=== PATIENT | female | born 1955 | race Caucasian/White ===

== ENCOUNTER 2017-12-13 16:43 | Inpatient (IN) | payer MEDICARE ==
[2017-12-13 17:49] LABS: PTT 23.4 SEC (22.9-36.1); Prothrombin Time 13.3 SEC (12.0-14.7)
[2017-12-13 17:59] LABS: #Lymphocytes 1.4 thou/uL (1.20-3.40); #Monocytes 0.4 thou/uL (0.11-0.59); #Neutrophils 5.1 thou/uL (1.40-6.50); %Basophils 0.4 % (0.0-1.0); %Eosinophils 0.2 % (0.0-10.0); %Lymphocytes 20.6 % (21.0-51.0); %Monocytes 6.2 % (0.0-10.0); %Neutrophils 72.6 % (42.0-75.0); ALT (SGPT) 220 U/L (8-55); AST (SGOT) 340 U/L (5-34); Albumin 3.7 g/dL (3.4-4.8); Alkaline Phosphatase 132 U/L (40-150); Anion Gap 13 mmol/L (10-20); BUN (Urea Nitrogen) 13 mg/dL (9.8-20.1); Bilirubin, Total 0.9 mg/dL (0.2-1.2); Calc. Creatinine Clearance 0 mL/min (70-130); Calcium 8.6 mg/dL (7.8-10.44); Carbon Dioxide 27 mmol/L (23-31); Chloride 106 mmol/L (98-107); Estimated GFR-MDRD 73; Globulin 2.7 g/dL (2.4-3.5); Glucose 83 mg/dL (80-115); Hemoglobin 7.1 g/dL (12.0-16.0); Iron 15 ug/dL (50-170); Iron Binding Capacity, Total 386 mcg/dL (265-497); Mean Corpuscular Hemoglobin 19.1 pg (27.0-31.0); Mean Corpuscular Volume 66.1 fl (81.0-99.0); Platelet Count 335 thou/uL (130-400); Potassium 4.1 mmol/L (3.5-5.1); Protein, Total 6.4 g/dL (6.0-8.3); RBC Distribution Width 20.7 % (11.5-14.5); Red Blood Cell (RBC) Count 3.73 mill/uL (4.20-5.40); Sodium 142 mmol/L (136-145)
[2017-12-13 18:14] LABS: Anisocytosis MODERATE=16-30 cells (100X) (0-5/hpf); Elliptocytes SLIGHT = 2-5 cells (100X) (0-1/hpf); Hypochromia SLIGHT = 6-15 cells (100X) (0-5/hpf); MDiff Complete? YES; Microcytosis MODERATE=15-30 cells (100X) (0-5/hpf); Ovalocytes SLIGHT = 2-5 cells (100X) (0-1/hpf); PLT Morphology Comment Appears Adequate; Poikilocytosis SLIGHT = 6-15 cells (100X) (0-5/hpf); Polychromasia MODERATE = 3-4 cells (100X) (0-2/hpf); Schistocytes SLIGHT = 2-5 cells (100X) (0-1/hpf); Tear Drops SLIGHT = 2-5 cells (100X) (0-1/hpf)
--- NOTE | 2017-12-13 18:59 | PDOC.FPRHP ---
- History of Present Illness Chief Complaint: fatigued History of Present Illness: 62 yo F with multiple ED visits for Anemia, comes in with fatigue which has been getting progressively worse over a period of months. She states nothing changed today she just got fed up with feeing tired and decided to come in. She has been having dark stools for months-years, she is not sure. Was seen at [facility] on 11/09 and worked up for anemia by Dr. Lira, at that time she was referred to GI for colonscopy but she did not follow through as she was anxious about getting the procedure done. She also quit taking iron pills that were prescribed at that time as she says they make her feel bloated. She had a blood transfusion in July. She has no problems eating. She states she has some sharp epigasric pain which started after arriving at the ED tonight. She has had it before, it comes on randomly, nothing makes it better or worse, lasts about 30 minutes then goes away. ED Course: Protonix Drip Ct at outside hospital, no acute process, see impression - Allergies/Adverse Reactions Allergies Allergy/AdvReac Type Severity Reaction Status Date / Time aspirin Allergy Verified 12/13/17 20:36 bacitracin Allergy Verified 12/13/17 20:36 [From Neosporin ([id number])] diphenhydramine Allergy Verified 12/13/17 20:36 [From Benadryl] neomycin Allergy Verified 12/13/17 20:36 [From Neosporin ([id number])] pentazocine [From Talwin] Allergy Verified 12/13/17 20:36 polymyxin B Allergy Verified 12/13/17 20:36 [From Neosporin ([id number])] - Home Medications Medication Instructions Recorded Confirmed Type ALPRAZolam [Alprazolam] 1 tab PO QID 12/13/17 12/13/17 History Acetaminophen With Codeine 1 tab PO Q6HR PRN 12/13/17 12/13/17 History [Acetaminophen/Codeine #4] Albuterol Sulfate [Albuterol 1.25 mg NEB Q8HR PRN 12/13/17 12/13/17 History Sulfate Neb] Albuterol Sulfate [Ventolin Hfa] 2 puff INH QID PRN 12/13/17 12/13/17 History Fluticasone/Vilanterol [Breo 1 each IH DAILY PRN 12/13/17 12/13/17 History Ellipta 200-25 Mcg INH] Omeprazole [Omeprazole] 1 tab PO DAILY 12/13/17 12/13/17 History Roflumilast [Daliresp] 1 tab PO DAILY 12/13/17 12/13/17 History Venlafaxine HCl [Venlafaxine HCl 1 tab PO BID 12/13/17 12/13/17 History ER] predniSONE [predniSONE] 1 tab PO DAILY 12/13/17 12/13/17 History - History PMHx: HLD, GI Bleed, Asthma, Stage 2 basal cell carcinoma removed from neck, PSHx: cholecystectomy, appendectomy, knee, ablation for SVT per patient, rotator cuff x2 FHx: mother CHF Social: no smoking, alcohol, or drugs - Review of Systems General: reports: fever/chills (chills, no fever), fatigue ENT: denies: nasal congestion Respiratory: reports: shortness of breath, exercise intolerance. denies: cough Cardiovascular: denies: chest pain, palpitation, edema Gastrointestinal: reports: nausea, vomiting, diarrhea, abdominal pain, GI bleeding. denies: constipation Genitourinary: denies: incontinence, polyuria Skin: denies: rashes, itching Musculoskeletal: reports: arthritis/arthralgias Neurological: denies: numbness, weakness Psychological: reports: anxiety - Vital signs BP: 155/67 HR: 106 RR: 14 Tmax: 97.8 Pox: 95% on RA Wt: 54kg - Physical Exam Constitutional: awake, alert and oriented, other (Patient is quite anxious, does not appear to be distressed) HEENT: normocephalic and atraumatic, PERRLA Neck: supple Heart: RRR, normal S1/S2, no edema Lungs: CTAB, no respiratory distress, good air movement Abdomen: soft, bowel sounds present, other (patient states she is tender to palpation diffusely, no guarding or rigidity) Musculoskeletal: normal structure, ROM grossly normal Neurological: no focal deficit Skin: no rash/lesions, capillary refill <2 seconds Heme/Lymphatic: other (easy bruising) FMR H&P: Results - Labs Result Diagrams: 12/13/17 17:30 12/13/17 17:30 Lab results: WBC 7.0 thou/uL (4.8-10.8) 12/13/17 17:30 Hgb 7.1 g/dL (12.0-16.0) L 12/13/17 17:30 Hct 24.6 % (36.0-47.0) L 12/13/17 17:30 MCV 66.1 fl (81.0-99.0) L 12/13/17 17:30 Plt Count 335 thou/uL (130-400) 12/13/17 17:30 Neutrophils % 72.6 % (42.0-75.0) 12/13/17 17:30 Sodium 142 mmol/L (136-145) 12/13/17 17:30 Potassium 4.1 mmol/L (3.5-5.1) 12/13/17 17:30 Chloride 106 mmol/L (98-107) 12/13/17 17:30 Carbon Dioxide 27 mmol/L (23-31) 12/13/17 17:30 BUN 13 mg/dL (9.8-20.1) 12/13/17 17:30 Creatinine 0.80 mg/dL (0.6-1.1) 12/13/17 17:30 Glucose 83 mg/dL (80-115) 12/13/17 17:30 Calcium 8.6 mg/dL (7.8-10.44) 12/13/17 17:30 Total Bilirubin 0.9 mg/dL (0.2-1.2) 12/13/17 17:30 AST 340 U/L (5-34) H 12/13/17 17:30 ALT 220 U/L (8-55) H 12/13/17 17:30 Alkaline Phosphatase 132 U/L (40-150) 12/13/17 17:30 Serum Total Protein 6.4 g/dL (6.0-8.3) 12/13/17 17:30 Albumin 3.7 g/dL (3.4-4.8) 12/13/17 17:30 FMR H&P: A/P - Problem List (1) Anemia Current Visit: Yes Status: Acute Code(s): D64.9 - ANEMIA, UNSPECIFIED (2) GI bleed Current Visit: Yes Status: Acute Code(s): K92.2 - GASTROINTESTINAL HEMORRHAGE, UNSPECIFIED (3) HLD (hyperlipidemia) Current Visit: Yes Status: Acute Code(s): E78.5 - HYPERLIPIDEMIA, UNSPECIFIED (4) Asthma Current Visit: Yes Status: Acute Code(s): J45.909 - UNSPECIFIED ASTHMA, UNCOMPLICATED (5) Transaminitis Current Visit: Yes Status: Acute Code(s): R74.0 - NONSPEC ELEV OF LEVELS OF TRANSAMNS & LACTIC ACID DEHYDRGNSE (6) Pneumonitis Current Visit: Yes Status: Acute Code(s): J18.9 - PNEUMONIA, UNSPECIFIED ORGANISM - Plan # Anemia 2/2 Chronic GI Bleed - dark stools for months - referred for colonoscopy 11/09, did not follow through - not taking iron as prescribed - protonix drip - hgb 7.1, 7.3 when evaluated in clinic on 11/09 - 11/09 labs: B12/folate WNL, TSH WNL, ferritin low, retic count 2.1 - today iron low, TIBC normal -> iron deficiency anemia - consult GI in AM for EGD/Colonoscopy # Transaminitis - RUQ US - Hepatitis panel - history of multiple transfusion, no history of drug use # Asthma - takes prednisone 10mg daily - gets "asthma shot" monthly with pulm, does not know what this called, apparently not getting it anymore - home meds - takes phenteramine to prevent appetite suppression - really likes dr. lira, suggest having him discuss cutting back on steroids - CT shows Rt lobe infectious pneumonitis, suggests f/u, CTAB, monitor # HLD - FLP - no statin on home meds # Anxiety - alprazolam 1mg TID at home - gave her tramadol as she was threatening to take tyl 3 from home, avoiding this 2/2 transaminitis - reports mild chest pain in the ED, EKG unremarkable, check trop/BNP as she says she get swelling at time Diet: clear liquids, NPO at midnight Code: full Fluids: NS 100ml/hr Dispo: >48 hours FMR H&P: Upper Level - Pertinent history 62 yo F with PMH significant for iron-def anemia, asthma presents with worsening fatigue. Was seen at [place] ED yesterday for similar symptoms, returned to ER and was then transferred to [facility] ER for acute GI bleed. H/H stable since yesterday, but patient has been passing dark, tarry bowel movements for the past week or so. FOBT positive at OSH. Pt describes worsening Roche, SOB with any activity, and dizziness, but denies any CP. Was referred to see GI specialist by PCP earlier this year, but did not go. Anemia also worked up at that time and found to be microcytic and iron-def. - Pertinent findings PE: T: 98.0 P: 93 BP: 160/63 RR: 18 99% on RA Gen: [place] female in NAD HEENT: PERRL, EOMI, MMM, pale sclera, no lymphadenopathy or thyromegaly CV: RRR no murmurs, distal pulses intact Pulm: CTAB, no wheezes or rhonchi Abd: soft, NT/ND, BS present, no masses Ext: no cyanosis or edema MSK: ORTIZ well, no joint or muscle pain or swelling Neuro: CN 2-12 intact, normal sensation Skin: no rashes or lesions Psych: A&O x3, appropriate in conversation, slightly anxious - Plan Date/Time: 12/13/17 1859 62 yo F here with hematochezia. 1) Acute GI bleed: Admit to medical. Type and crossed in ER, VS stable currently. Consult GI. NS @ 125. Continue PPI, avoid all NSAIDs. NPO at midnight. 2) Iron def. anemia: MCV 66, was previously started on iron by PCP, but stopped taking this. 3) Anxiety: Continue home medications. 4) asthma: Neb prn 5) transaminitis: RUQ US, hepatitis serologies I, [Wes Arizmendi], have evaluated this patient and agree with findings/plan as outlined by chemical engineering intern resident. Pertinent changes/additions are listed here.
[2017-12-13 19:38] LABS: CKMB 1.5 ng/mL (0-6.6); Troponin I Less than 0.010 ng/mL (< 0.028)
[2017-12-13 20:42] VITALS: BMI 22.6
[2017-12-13] MEDS ORDERED: Albuterol Sulfate 1.25 MG/3 ML NEB NEB PRN (20:52)
[2017-12-13] MEDS ORDERED: Non-Formulary Item 1 EACH (Fluticasone/Vilanterol [Breo Ellipta 200-25 Mcg Inh] 1 EACH) IH PRN (20:52)
[2017-12-13] MEDS ORDERED: PROVENTIL INHALER 6.7 G (200 INHALATIONS) INH PRN (20:52)
[2017-12-13] MEDS ORDERED: Mometasone/Formoterol 120 PUFF INHALER INH PRN (21:08)
--- NOTE | 2017-12-13 21:35 | ULT ---
GALLBLADDER ULTRASOUND: 12/13/17 INDICATIONS: Transaminitis. Nausea and vomiting. Epigastric pain. Patient is post cholecystectomy. Liver appears unremarkable. Common bile duct is normal caliber at 5 mm. the pancreas is obscured. The right kidney is identified. There is no evidence of hydronephrosis. Small 1 cm cyst mid right renal cortex. Small echogenic focus inferior pole measuring 5 to 7 mm may represent a small calculus. IMPRESSION: 1. Post cholecystectomy. 2. Small right renal cyst. 3. Liver appears unremarkable by ultrasound. POS: [facility]
[2017-12-13] MEDS: traMADol HCl 50 MG TAB PO PRN (21:56)
[2017-12-13] MEDS: Dicyclomine 10 MG CAP PO SCH (21:57)
[2017-12-13] MEDS: Venlafaxine HCl XR 75 MG CAP PO SCH (21:57)
[2017-12-13] MEDS: Pantoprazole 80 MG in Sodium Chloride 0.9% 100 ML IVP SCH (21:58)
[2017-12-13] MEDS: Sodium Chloride 0.9% 1,000 ML IV SCH (21:59)
[2017-12-13] MEDS: Ondansetron ODT 4 MG TAB PO PRN (23:44)
[2017-12-14 00:21] LABS: HBCM Index 0.07 S/CO (0-0.79); Hep A IgM AB Non-Reactive (NonReactive); Hep A IgM S/CO 0.07 S/CO (0-0.79); Hep B Surf Ag Non-Reactive S/CO (NonReactive); Hep C IgG Ab Non-Reactive (NonReactive); Hep C Index 0.05 S/CO (0-0.79); Hepatitis B Core IGM Abs Non-Reactive (NonReactive)
[2017-12-14 05:18] LABS: #Lymphocytes 2.4 thou/uL (1.20-3.40); #Monocytes 0.5 thou/uL (0.11-0.59); #Neutrophils 4.6 thou/uL (1.40-6.50); %Basophils 0.1 % (0.0-1.0); %Eosinophils 0.2 % (0.0-10.0); %Lymphocytes 31.4 % (21.0-51.0); %Neutrophils 61.4 % (42.0-75.0); Hemoglobin 6.4 g/dL (12.0-16.0); Mean Corpuscular HGB CONC 28.8 g/dL (32.0-36.0); Mean Corpuscular Hemoglobin 19.1 pg (27.0-31.0); Mean Corpuscular Volume 66.5 fl (81.0-99.0); Mean Platelet Volume 10.7 fL (7.4-10.4); Platelet Count 310 thou/uL (130-400); RBC Distribution Width 20.7 % (11.5-14.5); Red Blood Cell (RBC) Count 3.33 mill/uL (4.20-5.40); White Blood Cell (WBC) Count 7.5 thou/uL (4.8-10.8)
[2017-12-14 05:27] LABS: ALT (SGPT) 149 U/L (8-55); AST (SGOT) 144 U/L (5-34); Albumin 3.2 g/dL (3.4-4.8); Alkaline Phosphatase 113 U/L (40-150); Anion Gap 9 mmol/L (10-20); BUN (Urea Nitrogen) 8 mg/dL (9.8-20.1); Calc. Creatinine Clearance 67 mL/min (70-130); Calcium 8.1 mg/dL (7.8-10.44); Carbon Dioxide 30 mmol/L (23-31); Chloride 107 mmol/L (98-107); Estimated GFR-MDRD 77; Globulin 2.3 g/dL (2.4-3.5); Glucose 91 mg/dL (80-115); Potassium 3.2 mmol/L (3.5-5.1); Protein, Total 5.5 g/dL (6.0-8.3); Sodium 143 mmol/L (136-145)
[2017-12-14] MEDS: Sodium Chloride 0.9% 1,000 ML IV SCH ×2 (06:21→16:16)
[2017-12-14] MEDS: traMADol HCl 50 MG TAB PO PRN ×2 (06:29→21:26)
--- NOTE | 2017-12-14 06:42 | PDOC.FM ---
- Subjective Subjective: Complaining of left knee pain and chronic fatigue. She had one episode of vomiting last night that she said was mucous like, nonbloody, not coffee ground ; denied episodes of melena since yesterday. Denies hx of nsaid use, actually says she is allergic. She endorses chronic gerd hx and worsening sx at night. She denies longstanding hx of anemia. - Objective MAR Reviewed: Yes Vital Signs & Weight: Vital Signs (12 hours) Temp Pulse Resp BP Pulse Ox 12/14/17 05:52 98.6 F 101 H 21 H 146/60 H 91 L 12/14/17 00:00 98.2 F 94 22 H 142/82 H 97 12/13/17 21:24 99 12/13/17 19:50 98.3 F 96 20 98 12/13/17 19:40 98.3 F 96 20 177/76 H 98 Weight Weight 54.488 kg I&O: 12/12/17 12/13/17 12/14/17 06:59 06:59 06:59 Intake Total 1280 Balance 1280 Result Diagrams: 12/14/17 04:46 12/14/17 04:46 Phys Exam - Physical Examination Constitutional: NAD HEENT: PERRLA, moist MMs Neck: no JVD Respiratory: no wheezing, no rales, clear to auscultation bilateral Cardiovascular: no significant murmur tachycardic Gastrointestinal: soft, non-tender Musculoskeletal: no edema, pulses present Neurological: non-focal, normal sensation Psychiatric: normal affect, A&O x 3 Skin: no rash Dx/Plan (1) Upper GI bleed Code(s): K92.2 - GASTROINTESTINAL HEMORRHAGE, UNSPECIFIED Status: Acute (2) Symptomatic anemia Code(s): D64.9 - ANEMIA, UNSPECIFIED Status: Acute (3) History of melena Code(s): Z87.19 - PERSONAL HISTORY OF OTHER DISEASES OF THE DIGESTIVE SYSTEM Status: Acute (4) Asthma Code(s): J45.909 - UNSPECIFIED ASTHMA, UNCOMPLICATED Status: Acute (5) HLD (hyperlipidemia) Code(s): E78.5 - HYPERLIPIDEMIA, UNSPECIFIED Status: Acute (6) Transaminitis Code(s): R74.0 - NONSPEC ELEV OF LEVELS OF TRANSAMNS & LACTIC ACID DEHYDRGNSE Status: Acute (7) Right knee pain Code(s): M25.561 - PAIN IN RIGHT KNEE Status: Acute - Plan Plan: 62 yo female with melena admitted for sx anemia and transaminitis. # Symptomatic Anemia 2/2 Chronic GI Bleed - hgb 6.4 this am, last night was 7.1, and 7.3 when evaluated in clinic on 11/09 - 11/09 labs: B12/folate WNL - 11/09 labs showed iron deficient anemia - consult GI in AM for EGD/Colonoscopy - will transfuse one unit of packed red blood cells this am - will continue to volume resuscitate #Upper GI bleed- -Hb decreased to 6.4, ordered unit of blood -consulted GI, appreciate recs # Transaminitis - RUQ US wnl aside from evidence of a cholecystectomy and a right renal cyst - Hepatitis panel pending - history of multiple transfusions, no history of drug use -will order HIV, RPR #GERD -uncontrolled -will order h. pylori testing as sx occur at night -continue protonix # Asthma - takes prednisone 10mg daily - home meds - takes phenteramine to prevent appetite suppression - CT shows Rt lobe pneumonitis # HLD - FLP - no statin on home meds # Anxiety - alprazolam 1mg TID at home #Chestpain - reports mild chest pain in the ED, EKG unremarkable, check trop/BNP as she says she get swelling at time - likely anxiety Diet: clear liquids, NPO at midnight Code: full Fluids: NS 100ml/hr Dispo: >48 hours
[2017-12-14] MEDS ORDERED: Potassium Chloride 10 MEQ in Premix Bag 1 BAG IVPB SCH (07:00)
[2017-12-14] MEDS ORDERED: ROFLUMILAST PO SCH (09:00)
[2017-12-14] MEDS: ALPRAZolam 1 MG TAB PO PRN ×2 (10:42→21:25)
[2017-12-14] MEDS: predniSONE 5 MG TAB PO SCH (10:42)
[2017-12-14] MEDS: Dicyclomine 10 MG CAP PO SCH ×4 (10:42→21:18)
[2017-12-14] MEDS: Venlafaxine HCl XR 75 MG CAP PO SCH ×2 (10:42→21:18)
[2017-12-14] MEDS: Pantoprazole 80 MG in Sodium Chloride 0.9% 100 ML IVP SCH ×2 (10:56→22:18)
--- NOTE | 2017-12-14 11:57 | HP ---
HISTORY OF PRESENT ILLNESS: I have examined the patient. I have also discussed the case with Dr. Jaguar Miranda and agreed with his assessment and plan. Ms. Henley is a pleasant 62-year-old white female patient who was admitted with profound anemia likely of many months duration. She has a history of melena consistent with upper gastrointestinal bleed. This has been a problem for her ongoing for at least the last several months. We had initiated an outpatient workup through our clinic to include c olonoscopy which she initially refused. In the event, she presented to our emergency room with profo und fatigue, anemia and a hemoglobin level of 7.1 that later dropped to 6.4. She has been admitted f or transfusion and GI evaluation. PHYSICAL EXAMINATION: VITAL SIGNS: Her blood pressure is currently 140/70, her heart rate is 99, respirations 14. She is afebrile and her room air pulse oximetry is 95%. GENERAL: This is a pale, chronically ill-appearing female with brewer facies. No erythema or exudate. NECK: Supple. CARDIAC: Heart rhythm regular without gallop or murmur noted. LUNGS: Have occasional wheezes. She is in no distress. No use of accessory muscles. ABDOMEN: Epigastric tenderness without guarding, rebound or rigidity. NEUROLOGIC: No focal deficits. LABORATORY DATA: CBC on admission; white count 7,000, hemoglobin 7.1, hematocrit 24.6 with an MCV of 66. After some fluids, her hemoglobin dropped to 6.4, hematocrit of 22. MCV of 66. Chemistries: Sodium 142, potassium 4.1, chloride 106, bicarbonate 27, BUN 13, creatinine 0.8. Her s liseth iron is low at 15. Her TIBC is upper normal at 386. Her ferritin is low normal at 24.27. Her AST is elevated to 340 and her ALT is elevated to 220. ASSESSMENT: 1. Iron deficiency anemia. 2. Probable upper gastrointestinal bleed. 3. Elevated transaminases. 4. History of asthma. PLAN: We will admit, transfuse, consult GI for EGD and colonoscopy. We will also consider a tTG to check for celiac disease.
[2017-12-14 12:26] LABS: Hemoglobin 8.3 g/dL (12.0-16.0); Mean Corpuscular HGB CONC 29.5 g/dL (32.0-36.0); Mean Corpuscular Hemoglobin 20.7 pg (27.0-31.0); Mean Platelet Volume 5.3 fL (7.4-10.4); Platelet Count 315 thou/uL (130-400); RBC Distribution Width 22.7 % (11.5-14.5); Red Blood Cell (RBC) Count 4.03 mill/uL (4.20-5.40); White Blood Cell (WBC) Count 8.4 thou/uL (4.8-10.8)
[2017-12-14 13:10] LABS: HBSAB Concentration 0.37 mIU/mL; Hep B Surf AB Non-Reactive (NonReactive)
[2017-12-14] MEDS ORDERED: PROPOFOL 200 MG/20 ML VIAL ONE (13:48)
[2017-12-14] MEDS ORDERED: Lidocaine 1% PF 5 ML VIAL ONE (13:48)
[2017-12-14 16:59] LABS: Hemoglobin 8.2 g/dL (12.0-16.0); Mean Corpuscular HGB CONC 29.6 g/dL (32.0-36.0); Mean Corpuscular Hemoglobin 20.7 pg (27.0-31.0); Mean Corpuscular Volume 69.9 fl (81.0-99.0); Mean Platelet Volume 10.9 fL (7.4-10.4); Platelet Count 311 thou/uL (130-400); RBC Distribution Width 22.3 % (11.5-14.5); Red Blood Cell (RBC) Count 3.97 mill/uL (4.20-5.40); White Blood Cell (WBC) Count 9.1 thou/uL (4.8-10.8)
[2017-12-14] MEDS ORDERED: GoLYTELY 4,000 ml Bottle PO SCH (18:00)
--- NOTE | 2017-12-14 18:21 | ULT ---
LEFT LOWER EXTREMITY VENOUS DUPLEX EXAM: 12/14/17 Deep veins of the left lower extremity evaluated with color doppler, spectral analysis and compressio n. INDICATIONS: Left lower extremity pain and edema. Deep veins of the left lower extremity show normal compression, augmentation and blood flow. No evide nce of DVT. IMPRESSION: No evidence of left lower extremity DVT. POS: [facility]
[2017-12-14] MEDS: Ondansetron ODT 4 MG TAB PO PRN (21:25)
[2017-12-15] MEDS: Sodium Chloride 0.9% 1,000 ML IV SCH ×3 (04:47→22:57)
[2017-12-15] MEDS: traMADol HCl 50 MG TAB PO PRN (04:52)
--- NOTE | 2017-12-15 06:56 | PDOC.FM ---
- Subjective Subjective: No acute events overnight. Still endorses fatigue this am. Awaiting colonoscopy today. - Objective MAR Reviewed: Yes Vital Signs & Weight: Vital Signs (12 hours) Temp Pulse Resp BP Pulse Ox 12/14/17 21:16 99.3 F 84 18 165/68 H 99 12/14/17 20:00 99.3 F 84 18 99 Weight Weight 54.488 kg I&O: 12/13/17 12/14/17 12/15/17 06:59 06:59 06:59 Intake Total 1280 350 Balance 1280 350 Result Diagrams: 12/14/17 16:46 12/14/17 04:46 Phys Exam - Physical Examination Constitutional: NAD HEENT: PERRLA, moist MMs Respiratory: no wheezing, no rales, clear to auscultation bilateral Cardiovascular: RRR, no significant murmur Gastrointestinal: soft, non-tender, no distention Musculoskeletal: no edema, pulses present Neurological: non-focal, normal sensation Psychiatric: normal affect, A&O x 3 Skin: no rash Dx/Plan (1) Upper GI bleed Code(s): K92.2 - GASTROINTESTINAL HEMORRHAGE, UNSPECIFIED Status: Acute (2) Symptomatic anemia Code(s): D64.9 - ANEMIA, UNSPECIFIED Status: Acute (3) History of melena Code(s): Z87.19 - PERSONAL HISTORY OF OTHER DISEASES OF THE DIGESTIVE SYSTEM Status: Acute (4) Asthma Code(s): J45.909 - UNSPECIFIED ASTHMA, UNCOMPLICATED Status: Acute (5) HLD (hyperlipidemia) Code(s): E78.5 - HYPERLIPIDEMIA, UNSPECIFIED Status: Acute (6) Transaminitis Code(s): R74.0 - NONSPEC ELEV OF LEVELS OF TRANSAMNS & LACTIC ACID DEHYDRGNSE Status: Acute (7) Right knee pain Code(s): M25.561 - PAIN IN RIGHT KNEE Status: Acute - Plan Plan: 2 yo female with melena admitted for sx anemia and transaminitis. # Symptomatic Anemia 2/2 Chronic GI Bleed - hgb 8.2 after one unit of prbcs - 11/09 labs: B12/folate WNL - 11/09 labs showed iron deficient anemia - EGD completed yesterday, biopies of gastric mucosa and gastroesophageal junction; no overt signs of bleeding/ulcers; overall normal appearing mucosa - colonoscopy planned for this am - consider iron transfusion #Upper GI bleed- -H/H stable after one unit of blood transfused (8.2/ -consulted GI, appreciate recs # Transaminitis - RUQ US wnl aside from evidence of a cholecystectomy and a right renal cyst - Hepatitis panel wnl but pt not immune to hepatitis B - history of multiple transfusions, no history of drug use - will order HIV, RPR, EVA, and AMA #GERD -uncontrolled -H.pylori stool antigen pending and egd biopsies pending -continue protonix # Asthma - takes prednisone 10mg daily - home meds - takes phenteramine to prevent appetite suppression - CT shows Rt lobe pneumonitis # HLD - FLP - no statin on home meds # Anxiety - alprazolam 1mg TID at home #Chestpain - reports mild chest pain in the ED, EKG unremarkable, check trop/BNP as she says she get swelling at time - likely anxiety #right knee pain -posterior, hamstring area -venous doppler negative for clot -hx of arthroscopic meniscal surgery -recommend outpatient PT and RICE -not erythematous or warm, no rash or swelling Diet: clear liquids, NPO at midnight Code: full Fluids: NS 100ml/hr Dispo: >48 hours
--- NOTE | 2017-12-15 07:50 | OP ---
DATE OF SURGERY: 12/14/2017 OPERATIVE PROCEDURE: Esophagogastroduodenoscopy with biopsy. PREOPERATIVE DIAGNOSES: 1. Abdominal pain, nausea, history of dark stools. 2. Anemia. POSTOPERATIVE DIAGNOSES: 1. No esophagitis seen as the esophageal mucosa appeared normal. 2. Irregular Z-line. 3. Small hiatus hernia. 4. Gastric polyp over the gastric antrum with mild mucosal hyperemia. 5. Normal duodenum. PROCEDURE IN DETAIL: The patient was placed on the left lateral position and was given sedation by [facility] Anesthesia Department. A Pentax video gastroscope under direct vision was passed down the orophar ynx, past the GE junction, into the stomach and subsequently into the descending duodenum. The esoph ageal mucosa appeared normal. At the GE junction, the Z-line was irregular. She has small hiatus he rnia. The fundus, cardia and gastric body, no pathology seen. The gastric antrum shows mild mucosal hyperemia and also small gastric polyp. The duodenal bulb and descending duodenum, no pathology see n. Biopsies obtained from the GE junction and also from the gastric antrum and gastric body. The st omach was decompressed and the scope removed. RECOMMENDATIONS: Colonoscopy tomorrow.
[2017-12-15] MEDS: Dicyclomine 10 MG CAP PO SCH ×4 (08:03→20:03)
[2017-12-15] MEDS: predniSONE 5 MG TAB PO SCH ×2 (08:04→12:51)
[2017-12-15] MEDS: Venlafaxine HCl XR 75 MG CAP PO SCH ×2 (08:04→20:03)
--- NOTE | 2017-12-15 08:07 | CON ---
DATE OF CONSULTATION: 12/14/2017 REFERRING PHYSICIAN: Dr. Hattie De Leon-Dr. Eleazar Soliman, [facility]. REASON FOR CONSULTATION: Ms. Lindsay Henley is a very pleasant 62-year-old female hospital ized with severe pain over the left knee and left leg. The patient was found to have anemia on admis wisam. The patient gives history of some dark stools off and on over the last several months as per t he patient. The patient also has had isolated episodes of some nausea and vomiting with one time vom iting some coffee-ground material. This was happened sometime on 07/2017. Since that time, she has had no more coffee-ground vomiting. Her stool remained dark off and on. On admission, she was found to have anemia. She had a hemoglobin of 7.1 and dropping to 6.4. The patient has had no stool toda y. The patient has abdominal pain off and on. The pain over the epigastric area. She also has hist ory of chronic acid reflux, indigestion, and some heartburn. No history of dysphagia or odynophagia. The patient has had a colonoscopy maybe over 10-15 years ago and no followup colonoscopy afterwards . She has no family history of colon cancer. Her bowel movements are fairly regular. No history of weight loss. She has no relevant history. ALLERGIES: BACITRACIN, NEOMYCIN, PENTAZOCINE, POLYMYXIN, and also BENADRYL. SOCIAL HISTORY: The patient does not smoke or drink alcohol. MEDICATIONS: List include prednisone, Effexor, rabeprazole, Ellipta, fluticasone spray, albuterol inh aler, alprazolam. MEDICAL ILLNESSES: 1. Anxiety and depression. 2. Chronic seasonal allergies. 3. Chronic acid reflux. 4. She has obviously heart disease. 5. Hypertension. 6. Diabetes. SURGERIES: 1. Status post laparoscopic cholecystectomy. 2. ERCP with stent placement for what appears to be a stone and she got stent subsequently. T his was removed surgically. Other surgeries include knee surgery, appendectomy, and ablation of SVT in the past. She also has gamez d rotator cuff repair x2. FAMILY HISTORY: Mother with congestive heart failure. REVIEW OF SYSTEMS: A 10-point system review. Constitutional: No history of fever, no weight loss, has a good energy level, but does note recent fatigue with some anemia. Central Nervous System: No history of TIA, no syncope, no chronic headache, no seizure disorder. Respiratory system: No histor y of chronic cough, hemoptysis, dyspnea. Cardiovascular system: No chest pain, no palpitation, no e xertional dyspnea, orthopnea or PND. Gastrointestinal: Abdominal pain over the epigastric area. Adelfo morrow also has some nausea, vomiting, and also has had some black tarry stool off and on. Genitourinary: No dysuria, hematuria, or frequency of urination. Musculoskeletal: History of back pain and arthr algias. She also has some pain over the left leg recently. Neuropsychiatric: History of depression , anxiety. PHYSICAL EXAMINATION: GENERAL: The patient appears pale. She is awake, alert, and communicative. She is in no distress. VITAL SIGNS: Her vital signs are actually stable. Temperature 98.5 degrees Fahrenheit, pulse is 94, blood pressure is 160/75. HEENT: Conjunctivae clear. NECK: Supple. No adenitis or thyromegaly noted. CARDIOVASCULAR SYSTEM: First and second heart sounds normal. LUNGS: Clear to auscultation. ABDOMEN: Soft to palpate. Abdomen is mildly tender over the epigastric area. There is no rebound o r guarding. No organomegaly or masses. EXTREMITIES: No edema. She is minimally tender over the left kneecap and also over the left posteri or fossa. There is no swelling. No evidence of . LABORATORY DATA: Shows anemia on admission. Admitting CBC: WBC 7000, hemoglobin 7.1, hematocrit is 24.6, MCV 66.1, platelet count 335,000, polymorphs 72, lymphocytes 20. Today, the CBC: WBC is 7500 , hemoglobin 6.4, hematocrit is 22.2. She has been transfused one unit of packed RBCs. Serum chemis tries: Sodium 143, potassium 3.2, chloride 107, bicarbonate 30, BUN is 8, creatinine 0.76, glucose 8 91, calcium 8.1, bilirubin is 1, AST is 144, ALT 149, alkaline phosphatase of 113, total protein 5.5, albumin 3.2, globulin 2.3. Hepatitis markers done shows a negative markers for all type A, B, and C and abdominal sonogram does not show any liver masses. The common bile duct at 5 mm. CLINICAL IMPRESSION: 1. A 62-year-old female with microcytic anemia. History of abdominal pain and nausea, and also history of dark stools off and on. 2. Abnormal liver function tests, etiology unclear. Negative sonogram. Negative hepatitis markers. 3. Status post cholecystectomy. 4. Past history of bile duct and placement and subsequent removal. RECOMMENDATION: EGD later on today. Because of microcytic anemia, I will plan also a colonoscopy to abad. In the meantime, would recommend follow up LFTs and also obtain a serum EVA level to rule ou t any autoimmune hepatitis.
[2017-12-15] MEDS: Pantoprazole 80 MG in Sodium Chloride 0.9% 100 ML IVP SCH ×2 (08:44→20:03)
[2017-12-15 10:07] LABS: Anion Gap 11 mmol/L (10-20); BUN (Urea Nitrogen) 4 mg/dL (9.8-20.1); Calc. Creatinine Clearance 71 mL/min (70-130); Calcium 8.6 mg/dL (7.8-10.44); Carbon Dioxide 28 mmol/L (23-31); Chloride 105 mmol/L (98-107); Estimated GFR-MDRD 82; Glucose 79 mg/dL (80-115); Potassium 3.2 mmol/L (3.5-5.1); Sodium 141 mmol/L (136-145)
[2017-12-15] MEDS ORDERED: Promethazine HCl 25 MG/ML VIAL SLOW IVP PRN (10:14)
[2017-12-15] MEDS ORDERED: Ondansetron HCl/PF 4 MG/2 ML Vial IVP PRN (10:14)
[2017-12-15] MEDS ORDERED: Morphine Sulfate 2 MG/ML SYRINGE SLOW IVP PRN (10:14)
[2017-12-15 10:25] LABS: #Monocytes 0.7 thou/uL (0.11-0.59); #Neutrophils 5.4 thou/uL (1.40-6.50); %Basophils 0.2 % (0.0-1.0); %Eosinophils 0.4 % (0.0-10.0); %Lymphocytes 24.7 % (21.0-51.0); %Monocytes 8.1 % (0.0-10.0); %Neutrophils 66.6 % (42.0-75.0); Hemoglobin 8.5 g/dL (12.0-16.0); Hypochromia MODERATE=16-30 cells (100X) (0-5/hpf); MDiff Complete? YES; Mean Corpuscular HGB CONC 29.4 g/dL (32.0-36.0); Mean Corpuscular Hemoglobin 20.6 pg (27.0-31.0); Mean Corpuscular Volume 70.1 fl (81.0-99.0); Mean Platelet Volume 5.7 fL (7.4-10.4); Microcytosis MODERATE=15-30 cells (100X) (0-5/hpf); Ovalocytes MODERATE= 6-15 cells (100X) (0-1/hpf); PLT Morphology Comment Appears Adequate; Platelet Count 315 thou/uL (130-400); Polychromasia SLIGHT = 2-3 cells (100X) (0-2/hpf); RBC Distribution Width 22.4 % (11.5-14.5); Red Blood Cell (RBC) Count 4.12 mill/uL (4.20-5.40); White Blood Cell (WBC) Count 8.1 thou/uL (4.8-10.8)
[2017-12-15 10:27] LABS: HIV (1/2) Antibody/Antigen Non-Reactive (NonReactive); HIV 1/2 INDEX 0.12 S/CO (<1.00); Syphilis Antibody Nonreactive (Nonreactive); Syphilis Antibody Index 0.03 S/CO (<1.00 Non-Reactive)
[2017-12-15] MEDS ORDERED: Albuterol Sulfate 2.5 mg/3 ml Neb NEB SCH (10:30)
--- NOTE | 2017-12-15 11:32 | ADD-PRG ---
DATE OF SERVICE: 12/15/2017 This is an addendum to the note of Dr. Hattie Romero. Mr. Henley underwent EGD yesterday with no findings of upper GI bleeding. She is down for a colono scopy now. We will likely boost her iron levels with iron infusions at least initially and temporari ly. In any event, we are continuing her workup for her iron deficiency anemia and likely gastrointes tinal blood loss.
[2017-12-15] MEDS ORDERED: Albuterol Sulfate 1.25 MG/3 ML NEB ONE (11:35)
[2017-12-15] MEDS ORDERED: Iron Sucrose Complex 100 MG in Sodium Chloride 0.9% 100 ML IVPB SCH (11:45)
--- NOTE | 2017-12-15 11:57 | OP ---
DATE OF PROCEDURE: 12/15/2017 SURGEON: Altagracia Moran M.D. OPERATIVE PROCEDURE: 1. Colonoscopy with 7-Swazi heater probe therapy of polypectomy site because of bleeding. 2. Hemoclip placement x2 over the cecum and x2 over the transverse colon polypectomy site. PREOPERATIVE DIAGNOSIS: Iron deficient anemia. POSTOPERATIVE DIAGNOSES: 1. Sigmoid diverticular disease. 2. Sessile polyp, cecum. 3. Sessile polyp transverse colon. PROCEDURE IN DETAIL: The patient was placed on her left lateral position and was given sedation by t Anesthesia Department. A rectal exam was done before the scope was advanced into the rectum. No lesion felt on rectal exam. A Pentax video colonoscope was introduced into the rectum and advanced a ll the way into the cecum. The prep was good. The appendical orifice, ileocecal valve, no pathology seen. A sessile cecal polyp was removed with snare cautery. After the polyp was removed the polype ctomy site did not cauterize very well and started bleeding. Initially a 7-Swazi heater probe was p assed through biopsy channel and the area was cauterized gently. Because risk of perforation I could not really cauterize too deep. The heater probe was removed. The Hemoclip x2 placed over the polyp ectomy site with good hemostasis. Water was used to easily washout. No evidence of any active bleed ing. The ascending colon, hepatic flexure, no pathology seen. The distal transverse colon showed a sessile polyp. This was removed intact. Again, the polypectomy site did not cauterize and had some brisk bleeding out of the polypectomy site. Initially, the area was cauterized with 7 Swazi heater probe, but did not control bleeding. Subsequently, the Hemoclips x2 placed over the polypectomy site with good hemostasis. I could not find the polyp, found the ____. The scope advanced further into the proximal colon and was carefully withdrawn. I did not see any polyp over the proximal colon. Andrea abrams, examined the distal polypectomy site. The scope was carefully withdrawn and I could not really find the polyp. The scope advanced back one more time back and forth and I still could not find the polyp. She does have sigmoid diverticular disease. RECOMMENDATIONS: 1. Keep the patient on clear liquid diet. 2. Will advise the patient to strain the stool and if the polyp comes out, we can probably send it f or pathology. 3. If she has no abdominal pain, no bleeding, advance diet to regular diet tomorrow.
[2017-12-15] MEDS ORDERED: Sodium Ferric Gluconate 125 MG in Sodium Chloride 0.9% 100 ML IVPB SCH (12:00)
[2017-12-15 12:19] LABS: t-Transglutaminase (tTG) IgA 0.4 EliAU/mL (<7 Negative); t-Transglutaminase (tTG) IgG 0.6 EliAU/mL (<7 Negative)
[2017-12-15 12:45] LABS: ANA Symphony (Qualitative) Negative (Negative); EliA Vaculitis New Method **** NEW METHOD ****; Mitochondrial Ab 0.6 U/mL (<4 Negative)
[2017-12-15 15:26] LABS: Hemoglobin 8.8 g/dL (12.0-16.0)
[2017-12-15] MEDS ORDERED: PROPOFOL 200 MG/20 ML VIAL ONE (15:52)
[2017-12-15] MEDS ORDERED: Lidocaine 1% PF 5 ML VIAL ONE (15:52)
[2017-12-15] MEDS: ALPRAZolam 1 MG TAB PO PRN (18:20)
[2017-12-16 04:18] LABS: Anion Gap 13 mmol/L (10-20); BUN (Urea Nitrogen) Less than 4 mg/dL (9.8-20.1); Calc. Creatinine Clearance 69 mL/min (70-130); Calcium 8.9 mg/dL (7.8-10.44); Carbon Dioxide 28 mmol/L (23-31); Chloride 104 mmol/L (98-107); Estimated GFR-MDRD 80; Glucose 89 mg/dL (80-115); Sodium 142 mmol/L (136-145)
[2017-12-16 04:24] LABS: #Basophils 0.1 thou/uL (0.0-0.2); #Lymphocytes 1.6 thou/uL (1.20-3.40); #Monocytes 0.6 thou/uL (0.11-0.59); #Neutrophils 6.3 thou/uL (1.40-6.50); %Eosinophils 0.1 % (0.0-10.0); %Lymphocytes 18.8 % (21.0-51.0); %Monocytes 7.1 % (0.0-10.0); Hemoglobin 8.8 g/dL (12.0-16.0); Mean Corpuscular HGB CONC 29.8 g/dL (32.0-36.0); Mean Corpuscular Hemoglobin 20.7 pg (27.0-31.0); Mean Corpuscular Volume 69.3 fl (81.0-99.0); Mean Platelet Volume 5.3 fL (7.4-10.4); Platelet Count 323 thou/uL (130-400); Potassium 2.9 mmol/L (3.5-5.1); RBC Distribution Width 22.6 % (11.5-14.5); Red Blood Cell (RBC) Count 4.24 mill/uL (4.20-5.40); White Blood Cell (WBC) Count 8.7 thou/uL (4.8-10.8)
[2017-12-16] MEDS ORDERED: Potassium Chloride 10 MEQ in Premix Bag 1 BAG IVPB SCH (05:00)
[2017-12-16 06:56] LABS: Cardiac Risk 4.3 (Less than 4.5); Magnesium 1.8 mg/dL (1.6-2.6)
--- NOTE | 2017-12-16 07:45 | PDOC.FM ---
- Subjective Subjective: Patient reports continued left knee pain. Reports abdominal pain in the center of her abdomen. She denies nausea, vomiting, and has not had any further stools. She reports that the fatigue has improved. - Objective MAR Reviewed: Yes Vital Signs & Weight: Vital Signs (12 hours) Temp Pulse Resp BP Pulse Ox 12/16/17 07:22 99.0 F 90 20 148/63 H 96 12/16/17 04:22 97.6 F 82 18 164/69 H 97 12/15/17 20:10 97.6 F 88 18 176/72 H 98 12/15/17 20:00 97.6 F 88 18 Weight Weight 54.488 kg I&O: 12/15/17 12/16/17 12/17/17 06:59 06:59 06:59 Intake Total 350 1100 Balance 350 1100 Result Diagrams: 12/16/17 03:26 12/16/17 03:26 <Mary Buitrago - Last Filed: 12/16/17 07:38> - Objective Vital Signs & Weight: Weight Weight 54.488 kg I&O: 12/16/17 12/17/17 12/18/17 06:59 06:59 06:59 Intake Total 1100 420 Balance 1100 420 Result Diagrams: 12/16/17 03:26 12/16/17 11:03 <Brian Mcrae - Last Filed: 12/17/17 10:50> Phys Exam - Physical Examination Constitutional: NAD HEENT: moist MMs Respiratory: no wheezing, no rales, no rhonchi, clear to auscultation bilateral Cardiovascular: RRR, no significant murmur, no rub Gastrointestinal: soft, no distention, positive bowel sounds tender to palpation in periumbilical region Musculoskeletal: no edema, pulses present Neurological: normal sensation, moves all 4 limbs Psychiatric: normal affect, A&O x 3 Skin: normal turgor, cap refill <2 seconds <Mary Buitrago - Last Filed: 12/16/17 07:38> Dx/Plan (1) Symptomatic anemia Code(s): D64.9 - ANEMIA, UNSPECIFIED Status: Acute (2) Hypokalemia Code(s): E87.6 - HYPOKALEMIA Status: Acute (3) Upper GI bleed Code(s): K92.2 - GASTROINTESTINAL HEMORRHAGE, UNSPECIFIED Status: Acute (4) Transaminitis Code(s): R74.0 - NONSPEC ELEV OF LEVELS OF TRANSAMNS & LACTIC ACID DEHYDRGNSE Status: Acute (5) Pneumonitis Code(s): J18.9 - PNEUMONIA, UNSPECIFIED ORGANISM Status: Acute (6) History of melena Code(s): Z87.19 - PERSONAL HISTORY OF OTHER DISEASES OF THE DIGESTIVE SYSTEM Status: Acute (7) Asthma Code(s): J45.909 - UNSPECIFIED ASTHMA, UNCOMPLICATED Status: Acute QualifierTitle: Asthma severity: unspecified severity Asthma persistence : unspecified Asthma complication type: unspecified Qualified Code(s): J45.909 - Unspecified asthma, uncomplicated (8) Left knee pain Code(s): M25.562 - PAIN IN LEFT KNEE Status: Acute QualifierTitle: Chronicity: chronic Qualified Code(s): M25.562 - Pain in left knee; G89.29 - Other chronic pain; G89.29 - Other chronic pain (9) GERD with esophagitis Code(s): K21.0 - GASTRO-ESOPHAGEAL REFLUX DISEASE WITH ESOPHAGITIS Status: Acute (10) Hiatal hernia Code(s): K44.9 - DIAPHRAGMATIC HERNIA WITHOUT OBSTRUCTION OR GANGRENE Status: Acute (11) HLD (hyperlipidemia) Code(s): E78.5 - HYPERLIPIDEMIA, UNSPECIFIED Status: Acute QualifierTitle: Hyperlipidemia type: unspecified Qualified Code(s): E78.5 - Hyperlipidemia, unspecified - Plan Plan: Symptomatic Anemia 2/2 Chronic GI Bleed Hb 8.8 this AM. Pt s/p 1U PRBC's. B12/folate WNL, Iron studies consistent with Iron Def Anemia. FOBT was positive at outside ER, but negative here - EGD showed no overt signs of bleeding/ulcers; overall normal appearing mucosa. Biopsies showed mild active esophagitis consistent with GERD and mild chronic inactive gastritis. - s/p colonoscopy with biopsies pending - s/p iron infusion on 12/15 Upper GI bleed - H/H stable after one unit of blood transfused - consulted GI, appreciate recs Transaminitis RUQ US wnl aside from evidence of a cholecystectomy and a right renal cyst. Hepatitis panel wnl but pt not immune to hepatitis B. History of multiple transfusions, no history of drug use. HIV, RPR negative. EVA and anti-ds DNA positive - f/u outpatient Hypokalemia K+ 2.9 today, mag WNL. - Will replete and monitor GERD with Esophagitis - uncontrolled - H.pylori stool antigen pending, but no evidence of H. pylori on EGD biopsy - continue protonix Asthma - takes prednisone 10mg daily - home meds - takes phenteramine to prevent appetite suppression - CT shows Rt lobe pneumonitis HLD - FLP WNL - no statin on home meds Anxiety - alprazolam 1mg TID at home Left knee pain -posterior, hamstring area, not erythematous or warm, no rash or swelling -venous doppler negative for clot -hx of arthroscopic meniscal surgery -recommend outpatient PT and RICE as well as outpatient work up for autoimmune -EVA and anti-ds DNA positive, could be related <Mary Buitrago - Last Filed: 12/16/17 07:38> Attending Addendum - Attending Addendum Date/Time: 12/17/17 1050 I personally evaluated the patient and discussed the management with Dr. Buitrago on 12/16. I agree with the History, Examination, Assessment and Plan documented above with any addition or exceptions noted below. <Brian Mcrae - Last Filed: 12/17/17 10:50>
[2017-12-16] MEDS: Pantoprazole 80 MG in Sodium Chloride 0.9% 100 ML IVP SCH (08:46)
[2017-12-16] MEDS: Sodium Chloride 0.9% 1,000 ML IV SCH (08:47)
[2017-12-16] MEDS: Potassium Chloride 20 MEQ TAB PO SCH ×2 (08:47→18:12)
[2017-12-16] MEDS: Dicyclomine 10 MG CAP PO SCH ×3 (08:47→18:12)
[2017-12-16] MEDS: Venlafaxine HCl XR 75 MG CAP PO SCH (08:47)
[2017-12-16] MEDS: predniSONE 5 MG TAB PO SCH (08:47)
[2017-12-16] MEDS ORDERED: Lisinopril 5 MG TAB PO SCH (09:00)
[2017-12-16] MEDS: ALPRAZolam 1 MG TAB PO PRN (10:17)
[2017-12-16 11:30] LABS: Anion Gap 15 mmol/L (10-20); BUN (Urea Nitrogen) Less than 4 mg/dL (9.8-20.1); Calc. Creatinine Clearance 62 mL/min (70-130); Calcium 8.9 mg/dL (7.8-10.44); Carbon Dioxide 27 mmol/L (23-31); Chloride 104 mmol/L (98-107); Estimated GFR-MDRD 71; Glucose 143 mg/dL (80-115); Potassium 3.6 mmol/L (3.5-5.1); Sodium 142 mmol/L (136-145)
--- NOTE | 2017-12-16 14:05 | PRG ---
DATE OF SERVICE: 12/16/2017 SUBJECTIVE: This is a 62-year-old white female hospitalized with anemia, history of black tarry agustoo l. An EGD done two days ago was negative for any pathology. She underwent polypectomy and had some post-polypectomy bleeding. This . The patient has done very well overnight. She has no abdomi nal pain. No hematochezia. Her blood count is stable. PHYSICAL EXAMINATION: GENERAL: Appears comfortable. VITAL SIGNS: Afebrile, pulse is 90, blood pressure 148/63. CARDIOVASCULAR: First and second heart sounds were normal. LUNGS: Clear to auscultation. ABDOMEN: Soft to palpate. No organomegaly. No tenderness. No masses. LABORATORY DATA: The lab data from today, CBC shows WBC 8900, hemoglobin is stable at 8.8, hematocri t 29.4. RECOMMENDATIONS: 1. Advance diet to regular diet. 2. From a GI standpoint, she can be discharged home. I will contact the patient next week once the biopsy is available.
--- NOTE | 2017-12-16 15:43 | DIS-2 ---
DATE OF ADMISSION: 12/13/2017 DATE OF DISCHARGE: 12/16/2017 ADMITTING RESIDENT: Carrillo Miranda M.D. DISCHARGE RESIDENT: Mary Buitrago M.D. ADMITTING ATTENDING: Eleazar Soliman M.D. DISCHARGE ATTENDING: Brian Mcrae M.D. CONSULTATIONS: Dr. Moran with Gastroenterology. PROCEDURES: 1. EGD on 12/14/2017. 2. Colonoscopy on 12/15/2017. PRIMARY DIAGNOSES: 1. Symptomatic anemia. 2. Upper gastrointestinal bleed. 3. Transaminitis. 4. Hypokalemia. 5. Gastroesophageal reflux disease with esophagitis. SECONDARY DIAGNOSES: 1. Asthma. 2. Hyperlipidemia. 3. Anxiety. 4. Left knee pain. DISCHARGE MEDICATIONS: 1. Albuterol sulfate 1.25 mg nebs q.8 hours p.r.n. shortness of breath or wheezing. 2. Albuterol sulfate 2 puffs inhaled q.i.d. p.r.n. shortness of breath or wheezing. 3. Breo Ellipta 200/25 mcg inhaled 1 each daily p.r.n. shortness of breath or wheezing. 4. Prednisone 10 mg 1 tab p.o. daily. 5. Roflumilast 500 mcg 1 tab p.o. daily. 6. Venlafaxine ER 75 mg 1 tab p.o. b.i.d. 7. Alprazolam 1 tab p.o. q.i.d. 8. Lisinopril 5 mg p.o. daily. 9. Omeprazole 40 mg p.o. daily. 10. Ondansetron 4 mg p.o. q.6 hours p.r.n. nausea, vomiting. DISCONTINUED MEDICATIONS: Tylenol #4. HISTORY OF PRESENT ILLNESS AND HOSPITAL COURSE: This is a 62-year-old female with past medical histo ry of chronic iron deficiency anemia, and GERD due to a large hiatal hernia who presented to the ER d ue to fatigue that have been continually worsening as well as melanotic stools. The patient was foun d to have hemoglobin of 7.1 that dropped to 6.4 after fluid resuscitation. The patient was transfuse d 1 unit of packed red blood cells. Patient had iron studies done that showed iron deficiency anemia and had normal B12 and folic acid. The patient was also given an iron infusion on 12/15/2017. The patient had an EGD and colonoscopy done that showed no signs of ulceration or bleeding, did get biops ies that showed signs of active esophagitis and chronic inactive gastritis. Biopsies from colonic po lyps are still pending at this time. The patient was also incidentally found to have elevated LFTs w ith AST of 340 and ALT of 220. The patient had hepatitis studies done that showed she was nonimmune to hepatitis B. Otherwise, normal HIV and syphilis were nonreactive. An EVA was checked that came b ack positive and the anti-double stranded DNA came back positive as well. Patient does have family h istory of lupus. The patient did report a chronic left knee pain. The patient had some elevated blo od pressures during her hospitalization and reported no history of hypertension in the past; however, due to the persistent elevation, she was started on a low dose of lisinopril and instructed to follo w up with her primary care physician regarding this. The patient also had episode of hypokalemia jeannine n to 2.9; however, this resolved with potassium replacement. Upon the day of discharge, the patient reported that her fatigue had improved and she was feeling much better overall. The patient was inst ructed to follow up with her primary care physician in [place] regarding her elevated blood pres sures, her elevated liver enzymes, her elevated EVA and anti-double stranded DNA antibody as well as her chronic anemia. The patient was not discharged on iron as the patient does not tolerate iron; ho wever, she may require repeat iron infusions if her iron remains low. The patient also may benefit f rom followup with GI outpatient. The patient was instructed to return to the emergency department fo r any bright red blood in her stools or dark black stools. DISPOSITION: Stable. DISCHARGE INSTRUCTIONS: 1. Location: Home. 2. Diet: Heart healthy. 3. Activity: As tolerated. 4. Followup: Follow up with her primary care physician in [place], within 1 week.
[2017-12-16 16:12] VITALS: BP 163/63; TEMP 98.4
--- NOTE | 2017-12-16 16:51 | PRG ---
DATE OF SERVICE: 12/15/2017 Ms. Lindsay Henley is a 62-year-old female who underwent colonoscopy with polypectomy x2. One was over the cecum and another transverse area. Both the polypectomy site started bleeding after polypectomy. The polyp in the cecum was very tight. However, the polyp in the transverse colon cou ld not be retrieved because of bleeding and the time spent to trying to control the bleeding. All of the bleeding was controlled. I did try to look for the polyp. Although several passes made, I coul d not really look at the polyp. The polypectomy site appeared very healthy after a clip was placed. I was able to advance the scope polypectomy site into the proximal colon. Again, the polyp could no t be identified. The patient had stool after she came back from polypectomy. The patient's bow el movement shows basically some yellowish stool. There is no blood seen. Also, no polyps seen. Sh e had a CBC done after the polypectomy. This morning, the hemoglobin was 8.5, hematocrit 28.9. Afte r polypectomy he remained stable at 8.8 and 29.5. PLAN: 1. Keep on clear liquid diet. 2. Repeat CBC tomorrow. 3. She had no bleeding or abdominal pain. Consider advancing diet to regular diet, and may go home tomorrow on iron supplement.
--- NOTE | 2017-12-18 13:52 | PQF ---
MANUELCLARA LAURA *r [id number] CLINICAL DOCUMENTATION CLARIFICATION FORM: POST DISCHARGE Addendum to original discharge summary date: 12/16/17 Late entry note date: __ Your assistance is needed to assign the appropriate principal diagnosis. Gi bleeding is considered to be a non-specific diagnosis. Please specify the cause of GI bleed or indicate "unknonwn Etiology". Please exercise your independent, professional judgment in responding to the clarification form. Clinical indicators are provided on the bottom of this form for your review After evaluation and work-up, please clarify the known, suspected, or likely etiology of the patients : Upper Gastrointesinal Bleed due to _esophagitis (please specify site, ie : gastritis, diverticulosis, polyp, unknown etiology) possible, probable and suspected conditions are acceptable. [ ] Unable to determine In addition, please specify: Present on Admission (POA): [ x ] Yes [ ] No [ ] Unable to determine For continuity of documentation, please document condition throughout progress notes and discharge summary. Thank You. CLINICAL INDICATORS - SIGNS / SYMPTOMS / LABS hematochazia cecal polyp transverse polyp chronic gastrirts GERD with esophagitis [employer] history TREATMENTS: EGD colonoscopy transfusion (This form is maintained as a part of the permanent medical record) 2014 [employer] All Rights Reserved Janine [email or web address] [phone] THOM
== END 2017-12-16 17:38 | disposition home or self-care (01) | DRG 392 ==
LOC: ERS 16:43 → T4-A 18:10
PROVIDERS: ADMIT Family Medicine; ATTEND Family Medicine
PROC: 30233N1 Transfusion of Nonautologous Red Blood Cells into Peripheral Vein, Percutaneous Approach (ICD-10-PCS; 2017-12-13)
PROC: 0DB68ZX Excision of Stomach, Via Natural or Artificial Opening Endoscopic, Diagnostic (ICD-10-PCS; principal; 2017-12-14)
PROC: 0DB78ZX Excision of Stomach, Pylorus, Via Natural or Artificial Opening Endoscopic, Diagnostic (ICD-10-PCS; 2017-12-14)
PROC: 0DBH8ZZ Excision of Cecum, Via Natural or Artificial Opening Endoscopic (ICD-10-PCS; 2017-12-15)
PROC: 0DBL8ZZ Excision of Transverse Colon, Via Natural or Artificial Opening Endoscopic (ICD-10-PCS; 2017-12-15)
PROC: 0W3P8ZZ Control Bleeding in Gastrointestinal Tract, Via Natural or Artificial Opening Endoscopic (ICD-10-PCS; 2017-12-15)
DX: K21.0 Gastro-esophageal reflux disease with esophagitis (principal); K22.8 Other specified diseases of esophagus; D50.0 Iron deficiency anemia secondary to blood loss (chronic); K31.7 Polyp of stomach and duodenum; E78.5 Hyperlipidemia, unspecified; K29.50 Unspecified chronic gastritis without bleeding; R76.0 Raised antibody titer; D50.8 Other iron deficiency anemias; R74.0 Nonspecific elevation of levels of transaminase and lactic acid dehydrogenase [LDH]; M81.0 Age-related osteoporosis without current pathological fracture; E11.9 Type 2 diabetes mellitus without complications; E87.6 Hypokalemia; M25.561 Pain in right knee; R07.89 Other chest pain; R91.8 Other nonspecific abnormal finding of lung field; K44.9 Diaphragmatic hernia without obstruction or gangrene; F32.9 Major depressive disorder, single episode, unspecified; F41.9 Anxiety disorder, unspecified; J45.909 Unspecified asthma, uncomplicated; Z82.49 Family history of ischemic heart disease and other diseases of the circulatory system; Z88.1 Allergy status to other antibiotic agents; Z88.6 Allergy status to analgesic agent; Z79.899 Other long term (current) drug therapy; Z79.52 Long term (current) use of systemic steroids; Z79.51 Long term (current) use of inhaled steroids; Z85.828 Personal history of other malignant neoplasm of skin; Z90.49 Acquired absence of other specified parts of digestive tract; Z86.79 Personal history of other diseases of the circulatory system; Z88.8 Allergy status to other drugs, medicaments and biological substances; Z87.39 Personal history of other diseases of the musculoskeletal system and connective tissue
CPT/HCPCS: 36415; 36430; 76705; 80048; 80053; 80061; 80074; 82274; 82553; 82728; 83516; 83540; 83550; 83735; 83880; 84484; 85025; 85610; 85730; 86038; 86225; 86706; 86780; 86850; 86900; 86901; 87338; 87389; 88305; 88312; 88313; 93005; 94640; C9113; G8978-GP-CJ; G8979-GP-CJ; G8980-GP-CJ; G8987-GO-CI; G8988-GO-CI; G8989-GO-CI; J2001; J2704; J2916; J3480; J7050; J7611; P9016; Q0162